=== PATIENT | female | born 1950 | race Caucasian/White ===

== ENCOUNTER 2016-09-04 16:27 | Emergency (ER) | payer MEDICARE ==
[2016-09-04] MEDS ORDERED: Ketorolac Tromethamine 60 MG/2 ML VIAL ONE (17:12)
[2016-09-04] MEDS ORDERED: Triamcinolone 40 MG/ML VIAL ONE (17:12)
--- NOTE | 2016-09-04 18:12 | RAD ---
PORTABLE UPRIGHT FRONTAL CHEST RADIOGRAPH 09/04/16 COMPARISON: 10/31/14 HISTORY: Dyspnea. FINDINGS: There are surgical clips in the right upper quadrant suggesting prior cholecystectomy. Lungs are mil dly hyperinflated. Patient is mildly rotated to the right. The patient is imaged in a lordotic posit ion. There is increased linear interstitial density, mild and stable. No acute findings are noted. IMPRESSION: Stable mild interstitial prominence and pulmonary hyperinflation with no focal consolidation or alve olar edema. POS: [facility]
== END 2016-09-04 18:25 | disposition home or self-care (01) ==
LOC: MADERS 16:27
DX: J44.1 Chronic obstructive pulmonary disease with (acute) exacerbation (principal); I10 Essential (primary) hypertension; F41.9 Anxiety disorder, unspecified; Z87.891 Personal history of nicotine dependence; Z79.899 Other long term (current) drug therapy
CPT/HCPCS: 71010; 96372; J1885; J3301; J7620

== ENCOUNTER 2016-12-03 12:02 | Outpatient (CLI) | payer MEDICARE ==
[2016-12-03 12:32] LABS: #Basophils 0.1 thou/uL (0.0-0.2); #Eosinphils 0.1 thou/uL (0.0-0.7); #Lymphocytes 1.2 thou/uL (1.20-3.40); #Monocytes 0.8 thou/uL (0.11-0.59); #Neutrophils 11.4 thou/uL (1.40-6.50); %Basophils 0.5 % (0.0-1.0); %Eosinophils 0.4 % (0.0-10.0); %Lymphocytes 8.6 % (21.0-51.0); %Monocytes 6.2 % (0.0-10.0); %Neutrophils 84.4 % (42.0-75.0); Hemoglobin 13.7 g/dL (12.0-16.0); Mean Corpuscular HGB CONC 31.6 g/dL (32.0-36.0); Mean Corpuscular Hemoglobin 30.8 pg (27.0-31.0); Mean Corpuscular Volume 97.5 fl (81.0-99.0); Mean Platelet Volume 6.5 fL (7.4-10.4); Platelet Count 315 thou/uL (130-400); RBC Distribution Width 12.6 % (11.5-14.5); Red Blood Cell (RBC) Count 4.45 mill/uL (4.20-5.40); White Blood Cell (WBC) Count 13.5 thou/uL (4.8-10.8)
[2016-12-03 12:38] LABS: Bilirubin Negative (Negative); Blood, Urine Moderate (Negative); Clarity Clear (Clear); Glucose, Urine (Dipstick) 100 mg/dL (Negative); Leukocyte Negative (Negative); Nitrite Negative (Negative); Protein, Urine (Dipstick) Negative (Neg-Trace); Specific Gravity, Urine 1.015 (1.005-1.030); Urobilinogen 0.2 mg/dL (0.2-1.0); pH, Urine 7.5 (5.0-9.0)
[2016-12-03 12:42] LABS: ALT (SGPT) 41 U/L (8-55); AST (SGOT) 19 U/L (5-34); Albumin 3.9 g/dL (3.4-4.8); Alkaline Phosphatase 140 U/L (40-150); Anion Gap 15 mmol/L (10-20); BUN (Urea Nitrogen) 7 mg/dL (9.8-20.1); Bacteria/HPF Rare-Few HPF (None Seen); Bilirubin, Total 0.6 mg/dL (0.2-1.2); Calc. Creatinine Clearance 0 mL/min (70-130); Calcium 9.7 mg/dL (7.8-10.44); Carbon Dioxide 29 mmol/L (23-31); Chloride 95 mmol/L (98-107); Estimated GFR-MDRD Greater than 90; Globulin 3.3 g/dL (2.4-3.5); Glucose 82 mg/dL (80-115); Potassium 4.5 mmol/L (3.5-5.1); Protein, Total 7.2 g/dL (6.0-8.3); Sodium 134 mmol/L (136-145); Squamous Epithelial 0-3 HPF (0-3); WBC/HPF 0-3 HPF (0-3)
--- NOTE | 2016-12-03 14:24 | RAD ---
CHEST 2 VIEWS: HISTORY: Shortness of breath, history of COPD. COMPARISON: Chest 1 view, 09/04/16. FINDINGS: There is a right middle lobe airspace opacity with some bulging of the minor fissure. The left lung is relatively clear. Mild lung hyperinflation. IMPRESSION: Findings suggestive of right middle lobe pneumonia. Followup after treatment recommended. POS: [facility]
== END 2016-12-03 12:03 | disposition home or self-care (01) ==
LOC: MADRAD 12:02
PROVIDERS: ATTEND Family Medicine
DX: J44.1 Chronic obstructive pulmonary disease with (acute) exacerbation (principal); R06.01 Orthopnea
CPT/HCPCS: 36415; 71020; 80053; 81003; 81015; 83880; 84443; 85025

== ENCOUNTER 2016-12-14 22:16 | Emergency (ER) | payer MEDICARE ==
[2016-12-14] MEDS ORDERED: Lorazepam 2 MG/ML VIAL ONE (22:50)
--- NOTE | 2016-12-14 23:06 | RAD ---
PORTABLE CHEST ONE VIEW 12/14/16 at 10:36 p.m. HISTORY: Dyspnea. FINDINGS/IMPRESSION: Comparison is made with exam of 12/03/16. The heart size is normal. The aorta is tortuous. The lungs are well expanded with mild prominence of the pulmonary vascularity. No focal areas of consolidation, pneumothorax or pleural effusions are s een. The right mid lung patchy opacity noted on the previous exam has resolved in the interim. POS: [facility]
[2016-12-14 23:24] LABS: #Basophils 0.1 thou/uL (0.0-0.2); #Lymphocytes 0.5 thou/uL (1.20-3.40); #Monocytes 0.5 thou/uL (0.11-0.59); #Neutrophils 13.7 thou/uL (1.40-6.50); %Basophils 0.7 % (0.0-1.0); %Eosinophils 0.1 % (0.0-10.0); %Lymphocytes 3.7 % (21.0-51.0); %Monocytes 3.2 % (0.0-10.0); %Neutrophils 92.3 % (42.0-75.0); Hemoglobin 13.5 g/dL (12.0-16.0); Mean Corpuscular HGB CONC 31.5 g/dL (32.0-36.0); Mean Corpuscular Hemoglobin 31.3 pg (27.0-31.0); Mean Corpuscular Volume 99.2 fl (81.0-99.0); Mean Platelet Volume 6.3 fL (7.4-10.4); Platelet Count 311 thou/uL (130-400); RBC Distribution Width 12.9 % (11.5-14.5); Red Blood Cell (RBC) Count 4.33 mill/uL (4.20-5.40); White Blood Cell (WBC) Count 14.9 thou/uL (4.8-10.8)
[2016-12-14 23:31] LABS: ALT (SGPT) 62 U/L (8-55); AST (SGOT) 34 U/L (5-34); Albumin 4.3 g/dL (3.4-4.8); Alkaline Phosphatase 116 U/L (40-150); Anion Gap 15 mmol/L (10-20); BUN (Urea Nitrogen) 14 mg/dL (9.8-20.1); Bilirubin, Total 0.5 mg/dL (0.2-1.2); Calc. Creatinine Clearance 0 mL/min (70-130); Calcium 9.3 mg/dL (7.8-10.44); Carbon Dioxide 33 mmol/L (23-31); Chloride 92 mmol/L (98-107); Estimated GFR-MDRD 88; Globulin 3.6 g/dL (2.4-3.5); Glucose 131 mg/dL (80-115); Potassium 4.6 mmol/L (3.5-5.1); Protein, Total 7.9 g/dL (6.0-8.3); Sodium 135 mmol/L (136-145)
[2016-12-14 23:38] LABS: CKMB 1.8 ng/mL (0-6.6); Troponin I 0.023 ng/mL (< 0.028)
[2016-12-15] MEDS ORDERED: ALPRAZolam 0.25 MG TAB ONE (00:15)
== END 2016-12-15 00:26 | disposition home or self-care (01) ==
LOC: MADERS 22:16
DX: J44.1 Chronic obstructive pulmonary disease with (acute) exacerbation (principal); F41.9 Anxiety disorder, unspecified; I10 Essential (primary) hypertension; F17.210 Nicotine dependence, cigarettes, uncomplicated; Z79.52 Long term (current) use of systemic steroids; Z79.899 Other long term (current) drug therapy
CPT/HCPCS: 36415; 71010; 80053; 82553; 83605; 83880; 84484; 85025; 87040; 93005; 96374; J2060; J7620

== ENCOUNTER 2016-12-15 13:04 | Emergency (ER) | payer MEDICARE ==
[~2016-12-15 13:04] MED LIST: Sodium Chloride 0.9% 1,000 ML BAG ONE; Sodium Chloride 0.9% 100 ML BAG ONE; Sodium Chloride 0.9% 500 ML BAG ONE; Sterile Water Irrigation 250 ML BOT ONE; Succinylcholine Chloride 20 MG/ML 10 ml SYRINGE FS ONE
[2016-12-15] MEDS ORDERED: Dexamethasone 10 MG/ML VIAL ONE (13:16)
[2016-12-15] MEDS ORDERED: Albuterol Sulfate 1.25 MG/3 ML NEB ONE ×2 (13:16→14:42)
[2016-12-15] MEDS ORDERED: Albuterol Sulfate 2.5 mg/0.5 ml Neb ONE (13:16)
--- NOTE | 2016-12-15 13:28 | RAD ---
AP VIEW CHEST 12/15/2016 HISTORY: Dyspnea. COMPARISON: 12/14/2016 FINDINGS: AP view chest demonstrate EKG leads seen over the chest. Ectasia of the aorta is seen. Pulmonary v ascular congestion is seen. There appears to be some soft tissue calcification in the right breast. There may be some diffuse air space opacities in the right lung base. Correlation with chest CT may be of use. IMPRESSION: Possible subtle area of air space opacity in the right lung base. POS: [facility]
[2016-12-15] MEDS ORDERED: Fentanyl 100 MCG/2 ML VIAL ONE ×2 (13:48→13:56)
[2016-12-15] MEDS ORDERED: Midazolam HCl 10 mg/2 ml Vial ONE ×2 (13:48→13:59)
[2016-12-15] MEDS ORDERED: Azithromycin 500 MG VIAL ONE (14:15)
[2016-12-15] MEDS ORDERED: cefTRIAXone\\ROCEPHIN 1 GM VIAL ONE (14:15)
--- NOTE | 2016-12-15 14:20 | RAD ---
CHEST 1 VIEW: HISTORY: Tube placement. COMPARISON: Chest 1 view 12/15/16. FINDINGS: The patient is intubated with endotracheal tube tip 4.8 cm proximal to the marilu. There is a right middle lobe airspace opacity. There is moderate interstitial edema and interstitial opacities as d eveloping alveolar opacities. Heart size is prominent. Hyperdensity projecting over the lower thoracic spine of unclear significance. IMPRESSION: 1. Right middle lobe airspace opacity can be seen with pneumonia or mass. Followup recommended. 2. Endotracheal tube tip 4.8 cm proximal to the marilu. 3. Interstitial and alveolar opacities suggestive of edema. POS: [facility]
[2016-12-15 14:47] LABS: #Lymphocytes 0.9 thou/uL (1.20-3.40); #Monocytes 0.5 thou/uL (0.11-0.59); #Neutrophils 11.4 thou/uL (1.40-6.50); %Basophils 0.3 % (0.0-1.0); %Eosinophils 0.3 % (0.0-10.0); %Monocytes 3.8 % (0.0-10.0); %Neutrophils 88.6 % (42.0-75.0); Hemoglobin 11.6 g/dL (12.0-16.0); Mean Corpuscular HGB CONC 31.8 g/dL (32.0-36.0); Mean Corpuscular Hemoglobin 31.4 pg (27.0-31.0); Mean Corpuscular Volume 98.8 fl (81.0-99.0); Mean Platelet Volume 6.3 fL (7.4-10.4); Platelet Count 248 thou/uL (130-400); RBC Distribution Width 12.9 % (11.5-14.5); Red Blood Cell (RBC) Count 3.69 mill/uL (4.20-5.40); White Blood Cell (WBC) Count 12.8 thou/uL (4.8-10.8)
[2016-12-15 15:08] LABS: ALT (SGPT) 80 U/L (8-55); AST (SGOT) 59 U/L (5-34); Albumin 3.3 g/dL (3.4-4.8); Alkaline Phosphatase 116 U/L (40-150); Anion Gap 12 mmol/L (10-20); BUN (Urea Nitrogen) 13 mg/dL (9.8-20.1); Bilirubin, Total 0.8 mg/dL (0.2-1.2); Calc. Creatinine Clearance 0 mL/min (70-130); Calcium 8.3 mg/dL (7.8-10.44); Carbon Dioxide 34 mmol/L (23-31); Chloride 95 mmol/L (98-107); Estimated GFR-MDRD Greater than 90; Globulin 2.8 g/dL (2.4-3.5); Glucose 117 mg/dL (80-115); Magnesium 1.8 mg/dL (1.6-2.6); Potassium 3.8 mmol/L (3.5-5.1); Protein, Total 6.1 g/dL (6.0-8.3); Sodium 137 mmol/L (136-145)
[2016-12-15 15:11] LABS: CKMB 2.6 ng/mL (0-6.6); Troponin I 0.024 ng/mL (< 0.028)
== END 2016-12-15 14:51 | disposition short-term general hospital (02) ==
LOC: MADERS 13:04
DX: R06.00 Dyspnea, unspecified (principal); I10 Essential (primary) hypertension; J44.9 Chronic obstructive pulmonary disease, unspecified; F41.9 Anxiety disorder, unspecified; Z87.891 Personal history of nicotine dependence; Z79.52 Long term (current) use of systemic steroids; Z79.899 Other long term (current) drug therapy
CPT/HCPCS: 31500; 71010; 80053; 82553; 83735; 83880; 84484; 85025; 85730; 93005; 94760; 96361; 96365; 96375; J0456; J0696; J1100; J2250; J3010; J7050; J7611; J7620

== ENCOUNTER 2017-01-18 20:35 | Emergency (ER) | payer MEDICARE ==
[2017-01-18 21:16] LABS: Clarity Hazy (Clear)
[2017-01-18 21:17] LABS: Leukocyte Unable to Interpret (Negative); Nitrite Unable to Interpret (Negative); Specific Gravity, Urine 1.015 (1.005-1.030)
[2017-01-18 21:18] LABS: Bacteria/HPF None Seen HPF (None Seen); Bilirubin Unable to Interpret (Negative); Blood, Urine Small (Negative); Glucose, Urine (Dipstick) 100 mg/dL (Negative); Protein, Urine (Dipstick) Unable to Interpret mg/dL (Neg-Trace); Urobilinogen UNABLE TO INTERPRET mg/dL (0.2-1.0)
[2017-01-18] MEDS ORDERED: Ketorolac Tromethamine 60 MG/2 ML VIAL ONE (21:22)
[2017-01-18] MEDS ORDERED: Acetaminophen 500 MG TAB ONE (21:22)
[2017-01-18] MEDS ORDERED: Gabapentin 100 MG CAP ONE (21:22)
[2017-01-18] MEDS ORDERED: Dexamethasone 4 MG TAB ONE (21:22)
[2017-01-18] MEDS ORDERED: cefTRIAXone\\ROCEPHIN 1 GM VIAL ONE (21:36)
== END 2017-01-18 21:58 | disposition home or self-care (01) ==
LOC: MADERS 20:35
DX: N39.0 Urinary tract infection, site not specified (principal); I10 Essential (primary) hypertension; J44.9 Chronic obstructive pulmonary disease, unspecified; F41.9 Anxiety disorder, unspecified; Z87.891 Personal history of nicotine dependence
CPT/HCPCS: 81001; 87086; 96372; J0696; J1885; J2001; J2270; J8540

== ENCOUNTER 2017-06-17 13:07 | Outpatient (CLI) | payer MEDICARE ==
[~2017-06-17 13:07] MED LIST changes: +Iopamidol 370 76% 100 ML VIAL ONE; -Sodium Chloride 0.9% 1,000 ML BAG ONE; -Sodium Chloride 0.9% 100 ML BAG ONE; -Sodium Chloride 0.9% 500 ML BAG ONE; -Sterile Water Irrigation 250 ML BOT ONE; -Succinylcholine Chloride 20 MG/ML 10 ml SYRINGE FS ONE
[2017-06-17 13:57] LABS: Calc. Creatinine Clearance 0 mL/min (70-130); Estimated GFR-MDRD Greater than 90
--- NOTE | 2017-06-17 15:36 | CT ---
POSTCONTRAST SOFT TISSUE NECK CT: Date: 06/17/17 HISTORY: Neck cancer. Benign neoplasm of trachea. COMPARISON: None. TECHNIQUE: Postcontrast soft tissue neck CT is performed in the axial plane. Reformatted images are submitted fo r interpretation. FINDINGS: Visualized brain parenchyma is unremarkable. Adequate aeration of the visualized paranasal sinuses. B ilateral mastoid air cell opacification. Aerodigestive tract appears to be patent. No mucosal abnormality. No obvious masses in the oral cavit y. Midline fatty raphe of the tongue is preserved. There is evidence of extensive periodontal disease . Epiglottis has a normal caliber. Pre-epiglottic fat is preserved. No obvious mucosal masses in the hy popharynx. In the supraglottic larynx, there appears to be a soft tissue mass in the midline measurin g 0.7 cm. There is also a soft tissue mass in the proximal trachea at the level of the cricoid cartil age measuring approximately 1.0 cm. Evaluation is limited on this examination due to motion. Direct v isualization is recommended. Symmetric attenuation of the sternocleidomastoid muscles. Symmetric attenuation of the parotid and kemp bmandibular glands. There is no evidence of lymphadenopathy based upon size criteria. There is no prevertebral soft tissue swelling. Upper mediastinum and lung apices are unremarkable for any acute process. Mild emphysematous changes in lung apices are noted. There is reversal of normal cervical lordosis at the C5-6 level. Cervical spine vertebral body height is maintained. No fracture. IMPRESSION: 1. Though this is a postcontrast image, the degree of enhancement is suboptimal. Grossly no soft tis rohit neck abnormality, in terms of lymphadenopathy. 2. There appear to be two soft tissues masses in the airway, one in the supraglottic larynx and the other at the level of the cricoid cartilage. Direct visualization is recommended. ENT consultation is also recommended. POS: [facility]
== END 2017-06-17 13:08 | disposition home or self-care (01) ==
LOC: MADCT 13:07 → MADLABBHPM 13:08
PROVIDERS: ATTEND Family Medicine
DX: D14.2 Benign neoplasm of trachea (principal)
CPT/HCPCS: 36415; 70491; 82565

== ENCOUNTER 2017-06-28 17:11 | Emergency (ER) | payer MEDICARE ==
[2017-06-28] MEDS ORDERED: Diazepam 5 MG TAB ONE (17:37)
[2017-06-28] MEDS ORDERED: Gabapentin 100 MG CAP ONE (17:38)
[2017-06-28] MEDS ORDERED: Ketorolac Tromethamine 30 MG/ML VIAL ONE (17:38)
== END 2017-06-28 17:52 | disposition home or self-care (01) ==
LOC: MADERS 17:11
DX: G89.29 Other chronic pain (principal); M54.5 Low back pain; J44.9 Chronic obstructive pulmonary disease, unspecified; I10 Essential (primary) hypertension; F41.9 Anxiety disorder, unspecified; Z87.891 Personal history of nicotine dependence; Z79.899 Other long term (current) drug therapy
CPT/HCPCS: 96372; J1885

== ENCOUNTER 2017-09-28 15:27 | Emergency (ER) | payer MEDICARE ==
[2017-09-28] MEDS ORDERED: Ketorolac Tromethamine 30 MG/ML VIAL ONE (15:57)
== END 2017-09-28 16:10 | disposition home or self-care (01) ==
LOC: MADERS 15:27
DX: M54.5 Low back pain (principal); G89.29 Other chronic pain; I10 Essential (primary) hypertension; F41.9 Anxiety disorder, unspecified; J44.9 Chronic obstructive pulmonary disease, unspecified; Z87.891 Personal history of nicotine dependence; Z79.899 Other long term (current) drug therapy
CPT/HCPCS: 96372; J1885

== ENCOUNTER 2017-10-27 16:44 | Emergency (ER) | payer MEDICARE ==
[2017-10-27] MEDS ORDERED: Morphine 10 MG/ML VIAL ONE (17:12)
[2017-10-27] MEDS ORDERED: Ketorolac Tromethamine 30 MG/ML VIAL ONE (17:13)
[2017-10-27] MEDS ORDERED: Cyclobenzaprine 10 MG TAB ONE (17:13)
== END 2017-10-27 17:47 | disposition home or self-care (01) ==
LOC: MADERS 16:44
DX: M54.5 Low back pain (principal); F41.9 Anxiety disorder, unspecified; J44.9 Chronic obstructive pulmonary disease, unspecified; I10 Essential (primary) hypertension; Z79.899 Other long term (current) drug therapy; Z87.891 Personal history of nicotine dependence; Z79.891 Long term (current) use of opiate analgesic
CPT/HCPCS: 96372; J1885; J2270

== ENCOUNTER 2018-03-29 12:16 | Outpatient (CLI) | payer MEDICARE ==
[2018-03-29 12:42] LABS: #Basophils 0.1 thou/uL (0.0-0.2); #Eosinphils 0.1 thou/uL (0.0-0.7); #Lymphocytes 1.3 thou/uL (1.20-3.40); #Monocytes 0.6 thou/uL (0.11-0.59); #Neutrophils 9.1 thou/uL (1.40-6.50); %Basophils 0.6 % (0.0-1.0); %Eosinophils 1.2 % (0.0-10.0); %Lymphocytes 11.9 % (21.0-51.0); %Neutrophils 81.3 % (42.0-75.0); Hemoglobin 15.1 g/dL (12.0-16.0); Mean Corpuscular HGB CONC 31.3 g/dL (32.0-36.0); Mean Corpuscular Hemoglobin 29.6 pg (27.0-31.0); Mean Corpuscular Volume 94.5 fL (78.0-98.0); Mean Platelet Volume 6.5 fL (7.4-10.4); Platelet Count 303 thou/uL (130-400); RBC Distribution Width 12.3 % (11.5-14.5); Red Blood Cell (RBC) Count 5.12 mill/uL (4.20-5.40); White Blood Cell (WBC) Count 11.2 thou/uL (4.8-10.8)
[2018-03-29 13:00] LABS: ALT (SGPT) 164 U/L (8-55); AST (SGOT) 193 U/L (5-34); Albumin 4.3 g/dL (3.4-4.8); Alkaline Phosphatase 406 U/L (40-150); Anion Gap 14 mmol/L (10-20); BUN (Urea Nitrogen) 8 mg/dL (9.8-20.1); Bilirubin, Total 1.3 mg/dL (0.2-1.2); Calc. Creatinine Clearance 0 mL/min (70-130); Calcium 9.7 mg/dL (7.8-10.44); Carbon Dioxide 26 mmol/L (23-31); Chloride 98 mmol/L (98-107); Estimated GFR-MDRD 87; Globulin 3.8 g/dL (2.4-3.5); Glucose 97 mg/dL (80-115); Potassium 4.4 mmol/L (3.5-5.1); Protein, Total 8.1 g/dL (6.0-8.3); Sodium 134 mmol/L (136-145); Uric Acid Less than 2.0 mg/dL (2.6-6.0)
--- NOTE | 2018-03-29 13:14 | RAD ---
RIGHT ELBOW FOUR VIEWS: History: Right elbow pain. FINDINGS/IMPRESSION: NO fracture, dislocation, or bony destruction is seen. POS: [facility]
== END 2018-03-29 12:17 | disposition home or self-care (01) ==
LOC: MADLAB 12:16
PROVIDERS: ATTEND Family Medicine
DX: M25.521 Pain in right elbow (principal); I10 Essential (primary) hypertension
CPT/HCPCS: 36415; 80053; 84550; 85025; 85652

== ENCOUNTER 2018-04-28 12:08 | Outpatient (CLI) | payer MEDICARE ==
--- NOTE | 2018-04-28 13:29 | RAD ---
TWO VIEW LEFT HIP: Comparison: 04-27-16 History: Left hip pain for six weeks. FINDINGS: Two views of the left hip shows severe joint space narrowing and osteophyte formation. There is sligh t flattening of the femoral head. No fracture or dislocation are seen. IMPRESSION: Severe left hip osteoarthritis. POS: [facility]
--- NOTE | 2018-04-28 13:41 | RAD ---
SINGLE VIEW OF THE PELVIS: Comparison: 04-27-16 History: Left hip pain for six weeks. FINDINGS: Single view of the pelvis shows no evidence of acute fracture or dislocation. There is severe degener ative changes in the left hip with flattening of the femoral head and joint space narrowing/osteophyt e formation. IMPRESSION: Severe left hip osteoarthritis. POS: [facility]
== END 2018-04-28 12:09 | disposition home or self-care (01) ==
LOC: MADRAD 12:08
PROVIDERS: ATTEND Family Medicine
DX: M25.552 Pain in left hip (principal); M17.12 Unilateral primary osteoarthritis, left knee
CPT/HCPCS: 72170

== ENCOUNTER 2018-05-08 12:25 | Emergency (ER) | payer MEDICARE ==
[~2018-05-08 12:25] MED LIST changes: -Iopamidol 370 76% 100 ML VIAL ONE; +Iopamidol 370 76% 125 ML VIAL FS ONE
[2018-05-08] MEDS ORDERED: methylPREDNISolone Sod Succ/PF 125 MG/2 ML VIAL ONE (12:57)
[2018-05-08 13:25] LABS: #Basophils 0.1 thou/uL (0.0-0.2); #Eosinphils 1.2 thou/uL (0.0-0.7); #Lymphocytes 1.7 thou/uL (1.20-3.40); #Monocytes 0.5 thou/uL (0.11-0.59); #Neutrophils 7.2 thou/uL (1.40-6.50); %Basophils 0.7 % (0.0-1.0); %Eosinophils 11.2 % (0.0-10.0); %Lymphocytes 15.6 % (21.0-51.0); %Monocytes 4.9 % (0.0-10.0); %Neutrophils 67.5 % (42.0-75.0); Hemoglobin 14.9 g/dL (12.0-16.0); Mean Corpuscular HGB CONC 32.4 g/dL (32.0-36.0); Mean Corpuscular Hemoglobin 30.8 pg (27.0-31.0); Mean Corpuscular Volume 95.1 fL (78.0-98.0); Platelet Count 292 thou/uL (130-400); RBC Distribution Width 13.1 % (11.5-14.5); Red Blood Cell (RBC) Count 4.84 mill/uL (4.20-5.40); White Blood Cell (WBC) Count 10.6 thou/uL (4.8-10.8)
--- NOTE | 2018-05-08 13:28 | RAD ---
CHEST 1 VIEW: Date: 05/08/18 INDICATION: History of dyspnea. COMPARISON: Prior study dated 12/17/16. FINDINGS: Chronic lung changes are stable. Heart size is within normal limits. Costophrenic angles are excluded . No acute osseous abnormality is evident. IMPRESSION: No definite acute abnormality. POS: [facility]
[2018-05-08 13:46] LABS: ALT (SGPT) 868 U/L (8-55); AST (SGOT) 582 U/L (5-34); Albumin 4.2 g/dL (3.4-4.8); Alkaline Phosphatase 415 U/L (40-150); Anion Gap 15 mmol/L (10-20); BUN (Urea Nitrogen) 9 mg/dL (9.8-20.1); Bilirubin, Total 0.8 mg/dL (0.2-1.2); Calc. Creatinine Clearance 0 mL/min (70-130); Calcium 9.9 mg/dL (7.8-10.44); Carbon Dioxide 28 mmol/L (23-31); Chloride 96 mmol/L (98-107); Estimated GFR-MDRD Greater than 90; Globulin 3.8 g/dL (2.4-3.5); Glucose 112 mg/dL (80-115); Potassium 4.2 mmol/L (3.5-5.1); Sodium 135 mmol/L (136-145)
[2018-05-08] MEDS ORDERED: Fentanyl 100 MCG/2 ML VIAL ONE (15:22)
--- NOTE | 2018-05-08 17:25 | CT ---
CTA OF CHEST WITH CONTRAST: Date: 05/08/18 COMPARISON: None. HISTORY: Elevated D-Dimer with shortness of breath and wheezing. TECHNIQUE: Multiple contiguous axial images were obtained in a CTA of the chest with contrast per pulmonary embo lism protocol. 3D oblique MIP reformats and direct coronal reformats were performed. FINDINGS: The pulmonary arteries are well opacified without filling defects to suggest pulmonary emboli. The he art is normal in size without focal cardiac abnormality. No hilar or mediastinal lymphadenopathy seen . There is atelectasis in the right middle lobe and in the posterior aspect of the left lower lobe. The re is low density soft tissue density extending to the left lower lobe bronchus which may represent a mucus plug. No significant abnormality is seen within the airway to the right middle lobe. Emphysematous changes are seen in the lungs. No suspicious pulmonary nodule is seen. No pneumothorax or pleural effusion seen. The visualized subdiaphragmatic structures are unremarkable. Degenerative changes are seen in the spi ne. The chest wall soft tissues are unremarkable. IMPRESSION: 1. No evidence of pulmonary thromboembolism. 2. Atelectasis in the right middle lobe and left lower lobe, possibly secondary to mucus plugging. POS: [facility]
== END 2018-05-08 17:40 | disposition home or self-care (01) ==
LOC: MADERS 12:25
DX: J44.1 Chronic obstructive pulmonary disease with (acute) exacerbation (principal); I10 Essential (primary) hypertension; F41.9 Anxiety disorder, unspecified; Z87.891 Personal history of nicotine dependence; Z79.899 Other long term (current) drug therapy; Z71.6 Tobacco abuse counseling; Z79.891 Long term (current) use of opiate analgesic
CPT/HCPCS: 71045; 71275; 80053; 83880; 84484; 85025; 85379; 93005; 96374; 96375; 99406; J2930; J3010; J7620

== ENCOUNTER 2018-09-26 13:43 | Outpatient (CLI) | payer MEDICARE ==
--- NOTE | 2018-09-26 14:22 | CT ---
CT Thoracic Spine WO Con Indication: Pain/Injury COMPARISON: CT thorax 08/10/2018 is referenced FINDINGS: Acute fracture/subluxation: None Spinal alignment: No acute malalignment. Vertebral body heights: Maintained. Spinal degenerative change: Multilevel mild degenerative change is present, not atypical for patient' s age. Incidental note of pulmonary emphysema. Nonspecific interstitial, and reticulonodular opacities are s een within the lungs. This could represent interstitial lung disease. Superimposed atypical infectious/inflammatory process is not excluded. Correlate clinically. Irregularity of the sternum, multifocal, is favored to reflect motion artifact. There is diffuse vasc ular disease. IMPRESSION: No acute thoracic spine fracture. Additional details are discussed above.
== END 2018-09-26 13:44 | disposition home or self-care (01) ==
LOC: MADCT 13:43
DX: M54.6 Pain in thoracic spine (principal); M47.816 Spondylosis without myelopathy or radiculopathy, lumbar region; M47.814 Spondylosis without myelopathy or radiculopathy, thoracic region; Z91.81 History of falling
CPT/HCPCS: 72128

== ENCOUNTER 2019-12-24 12:13 | Outpatient (CLI) | payer MEDICARE ==
--- NOTE | 2019-12-24 14:23 | RAD ---
LUMBAR SPINE 5 VIEWS: Date: 12/24/2019 HISTORY: Low back pain. FINDINGS/IMPRESSION: Degenerative changes are present. There is mild dextroscoliosis of the lumbar spine. There is minimal anterolisthesis of L4 over L5 and L5 over S1 vertebra. No compression fracture or bony destruction i s seen. The minimal anterolisthesis noted on the neutral image at L4-5 and L5-S1 levels appears to im prove on flexion and extension views. POS: [facility]
== END 2019-12-24 12:14 | disposition home or self-care (01) ==
LOC: MADRAD 12:13
PROVIDERS: ATTEND Registered Nurse
DX: M54.5 Low back pain (principal); M47.816 Spondylosis without myelopathy or radiculopathy, lumbar region; M43.16 Spondylolisthesis, lumbar region; M43.17 Spondylolisthesis, lumbosacral region; M41.9 Scoliosis, unspecified
CPT/HCPCS: 72110

== ENCOUNTER 2022-12-12 11:45 | Emergency (ER) | payer MEDICARE, OTHER ==
[2022-12-12] MEDS ORDERED: Morphine 4 MG/ML VIAL ONE ×2 (12:58→16:08)
[2022-12-12] MEDS ORDERED: Ondansetron PF 4 MG/2 ML Vial ONE (12:58)
[2022-12-12 14:06] LABS: Bilirubin Negative (Negative); Blood, Urine Trace (Negative); Clarity Clear (Clear); Glucose, Urine (Dipstick) Negative (Negative); Ketone, Urine Negative (Negative); Leukocyte Negative (Negative); Nitrite Negative (Negative); Protein, Urine (Dipstick) Negative (Neg-Trace); Specific Gravity, Urine 1.015 (1.005-1.030); Urobilinogen 0.2 mg/dL (Less than 2); pH, Urine 5.5 (5.0-9.0)
[2022-12-12 14:14] LABS: Bacteria/HPF Rare-Few HPF (None Seen); CAUTI Indications for Culture Dysuria,urgency,freq; Mucous/LPF Few LPF (<2+); RBC/HPF 0-3 HPF (0-3); Urine Culture Reflex No No; WBC/HPF 0-3 HPF (0-3)
[2022-12-12] MEDS ORDERED: Fentanyl 100 MCG/2 ML VIAL ONE (14:27)
== END 2022-12-12 16:15 | disposition short-term general hospital (02) ==
LOC: MADERS 11:45
DX: M97.02XA Periprosthetic fracture around internal prosthetic left hip joint, initial encounter (principal); J44.9 Chronic obstructive pulmonary disease, unspecified; I10 Essential (primary) hypertension; F17.210 Nicotine dependence, cigarettes, uncomplicated; Z79.899 Other long term (current) drug therapy; W01.0XXA Fall on same level from slipping, tripping and stumbling without subsequent striking against object, initial encounter
CPT/HCPCS: 51702; 72170; 81001; 96374; 96375; 96376; J2270; J2405; J3010

== ENCOUNTER 2024-04-06 23:51 | Emergency (ER) | payer MEDICARE ==
[2024-04-07] MEDS ORDERED: Acetaminophen 500 MG TAB ONE (00:06)
[2024-04-07] MEDS ORDERED: Ketorolac Tromethamine 30 MG (1 mL) VIAL ONE (00:38)
[2024-04-07] MEDS ORDERED: Morphine 4 MG/ML VIAL ONE (01:34)
== END 2024-04-07 02:13 | disposition home or self-care (01) ==
LOC: MADERS 23:51
DX: M19.012 Primary osteoarthritis, left shoulder (principal); I10 Essential (primary) hypertension; J44.9 Chronic obstructive pulmonary disease, unspecified; F17.210 Nicotine dependence, cigarettes, uncomplicated; Z79.899 Other long term (current) drug therapy
CPT/HCPCS: 93005; 94760; 96372; 99284; J1885; J2272